=== PATIENT | male | born 1975 | race African-American/Black ===

== ENCOUNTER 2019-02-26 07:21 | Inpatient (IN) ==
[2019-02-26] MEDS ORDERED: APRESOLINE IV ONE (07:30)
[2019-02-26] MEDS ORDERED: LASIX IV ONE (07:35)
--- NOTE | 2019-02-26 07:46 | Diag Imaging Result Doc PS360 ---
EXAM: CHEST-1 VIEW 02/26/2019 HISTORY: sob TECHNIQUE: AP portable at 0738 COMMENT: There is cardiomegaly. There is subsegmental atelectasis in both lung bases. The pulmonary vascularity is prominent. Compared to 03/31/2018 the heart size appears larger as do the pulmonary vessels. IMPRESSION: Cardiomegaly and pulmonary vascular engorgement. Electronically signed by Saeid Weaver 02/26/2019 7:44 AM
--- NOTE | 2019-02-26 07:56 | EKG Report ---
Test Performed on : 02/26/2019 07:34:50 AM Test Reason : sob Blood Pressure : / mmHG Vent. Rate : 099 BPM Atrial Rate : 099 BPM P-R Int : 168 ms QRS Dur : 090 ms QT Int : 382 ms P-R-T Axes : 056 021 129 degrees QTc Int : 490 ms Normal sinus rhythm. Possible Left atrial enlargement ST & T wave abnormality, consider lateral ischemia Prolonged QT Abnormal ECG When compared with ECG of 31-MAR-2018 04:21, fusion complexes are no longer present Unconfirmed Result
[2019-02-26 08:45] LABS: BLOOD TYPE ARTERIAL; SAMPLE BLOOD
[2019-02-26 08:46] LABS: ALLEN TEST YES; BE -2.1 mmoll (-3.0-3.0); HCO3-(ACT) 23.2 mmoll (20.0-26.0); MODALITY ROOM AIR; O2(CT) 12.9 mL/dL (15.0-23.0); O2HB 93.9 % (95.0-99.0); PCO2(98.6) 35 mmHg (35-45); PO2(98.6) 82 mmHg (60-100); SAO2 98.2 % (95.0-100.0); THB 9.7 g/dL (11.5-17.4); pH(98.6) 7.41 (7.35-7.45)
--- NOTE | 2019-02-26 09:00 | PROVIDER DOCUMENTATION ---
HPI-Respiratory General - General Chief Complaint: Shortness of Breath Stated Complaint: SOB,BILA LEG,FOOT PAIN Time Seen by Provider: 02/26/19 07:27 Source: patient Allergies/Adverse Reactions: Patient Allergies Allergy/AdvReac Type Severity Reaction Status Date / Time No Known Allergies Allergy Verified 02/26/19 07:46 Home Medications: Home Medication List Medication Instructions Recorded Confirmed Last Taken Type Furosemide [Lasix] 20 mg PO BID 03/31/18 02/26/19 02/25/19 21:00 History Losartan Potassium 100 mg PO DAILY 03/31/18 02/26/19 02/25/19 21:00 History Clonidine HCl 1 tab PO TID 02/26/19 02/26/19 02/25/19 21:00 History - History of Present Illness-Resp Nature of Presenting Problem: 43 y/o Obese BM c/o moderate sob since last night and edema to his lower extremities that he notes is chronic and just worse in the past 3 months. Pt admits that he only takes some of his bp meds and only takes them once a day. Pt has not had any BP meds yet today he notes. Quality of Pain: reports: none Severity in ED: reports: mild Onset/Duration: reports: 24 hours ago Timing: reports: still present Exposure: reports: unknown cause Cough Quality/Degree: reports: mild Current Respiratory Medication Therapy: Initiated see nurses note Modifying Factors: improves with: exertion Associated Symptoms: reports: short of breath Similar Symptoms Previously?: No Recently seen or treated by another doctor?: No Review of Systems - Adult - REVIEW OF SYSTEMS - ADULT Constitutional: reports: see HPI Eyes: reports: see HPI Ears, Nose, Mouth & Throat: reports: see HPI Cardiovascular: reports: see HPI Respiratory: reports: see HPI, shortness of breath Gastrointestinal: reports: see HPI Genitourinary: reports: no symptoms reported, see HPI Musculoskeletal: reports: no symptoms reported, see HPI Integumentary: reports: no symptoms reported, see HPI Neurological: reports: no symptoms reported, see HPI Psychiatric: reports: no symptoms reported, see HPI Endocrine: reports: no symptoms reported, see HPI Hematologic/Lymphatic: reports: no symptoms reported, see HPI Allergic/Immunologic: reports: no symptoms reported, see HPI All Other Systems: Reviewed and Negative Past History - Adult - PAST MEDICAL HISTORY-ADULT Review of Records: reports: Nursing Assessment Review, Medications Reviewed, Social history reviewed & non-contributory. Major Childhood Illnesses: reports: denies history Cardiovascular: reports: HTN Respiratory: reports: denies history Gastrointestinal: reports: denies history Obstetrical/Gynecological: reports: denies history Genitourinary: reports: denies history Musculoskeletal: reports: denies history Neurological: reports: cancer/tumor (Brain) Psychiatric: reports: depression Endocrine/Immune: reports: denies history Other Conditions: reports: denies history - PRIOR SURGERIES/PROCEDURES Surgical/Procedure History: reports: none - PRIOR HOSPITALIZATIONS Prior Hospitalizations: reports: for other non-related - IMMUNIZATION STATUS Childhood Immunizations: See Nurse Assessment Flu Vaccine: See Nurse Assessment Physical Exam-General - PHYSICAL EXAM-ADULT Initial Vital Signs Reviewed: Yes - CONSTITUTIONAL General Appearance: appears well, alert, no apparent distress - EYES Eyes: PERRL/EOMI - HEAD, EARS, NOSE, MOUTH & THROAT HENMT: normocephalic/atraumatic, moist mucous membranes - NECK Neck: non-tender, full range of motion, supple, normal inspection - RESPIRATORY Respiratory: chest non-tender, lungs clear, normal breath sounds, no pleuratic chest pain, no respiratory distress, no accessory muscle use - CARDIOVASCULAR Cardiovascular: normal peripheral pulses, regular rate, rhythm, no edema, no gallop, no JVD, no murmur - GASTROINTESTINAL (ABDOMEN) Abdominal Exam: normal bowel sounds, non tender, soft - LYMPHATIC Lymphatic: no adenopathy - MUSCULOSKELETAL Back Exam: normal inspection, no CVA tenderness, no vertebral tenderness Extremity: normal range of motion, non-tender, normal gait, normal inspection, no pedal edema, no calf tenderness, normal capillary refill - SKIN Integumentary: normal color - NEUROLOGIC Neurologic: echo vascular tech II-XII nml as tested, grossly normal - PSYCHIATRIC Psych/Mental Status: normal mood/affect, normal thought content, normal thought process, oriented x 3 Progress - PLAN OF CARE/RESULTS Result Diagrams: 02/26/19 07:48 02/26/19 07:48 - CONSULTS/PCP/HOSPITALIST Notification #1 *Consult/PCP/Hospitalist*: [facility] for Hospitalist Dr Rebolledo Time Discussed: 10:23 Reason/Comments: Hospitalist wants to see pt before possibly starting lovenox. Consult Disposition: Will see in ED, Admit Departure - Departure Date of Disposition Decision: 02/26/19 Time of Disposition Decision: 10:23 DIAGNOSIS: CHF (congestive heart failure), Obesities, morbid, Renal insufficiency, Elevated d-dimer, Edema, Anemia, Nonadherence to medication Disposition: ADMITTED INPATIENT 09 Certified Medical Emergency: Emergent Condition: Fair - Critical Care Note This patient required my direct & personal management of CC.: No Attestation - Physician/ ANDRES Attestation Patient care was provided by Advanced Practice Provider:: No The physician spent face to face time with patient:: Yes Advanced Practice Provider documentation review:: Supervising physician onsite and consulted in the evaluation and care of this patient. The physician did have a face to face encounter with the patient.
[2019-02-26 09:28] LABS: BASO# 0.04 X1000 (0.0-0.2); BASO% 0.6 % (0.0-0.8); EOS% 5.7 % (0.0-10.0); HEMATOCRIT 29.1 % (42.0-52.0); HEMOGLOBIN 9.1 g/dL (14.0-18.0); IMM GRAN# 0.02 X1000 (0.0-0.04); IMM GRAN% 0.3 % (0.0-0.5); LYMPH# 2.06 X1000 (1.2-3.4); LYMPH% 29.5 % (20.5-51.1); MCH 26.3 PG (27-31); MCHC 31.3 g/dL (33-37); MCV 84.1 FL (81-99); MONO# 0.56 X1000 (0.11-0.59); MPV 11.6 FL (7.4-10.4); NEUT% 55.9 % (42.2-75.2); PLT 215 X1000 (130-400); RBC 3.46 XMIL (4.7-6.1); RDW 16.8 % (11.5-14.5); WBC 6.98 X1000 (4.8-10.8)
[2019-02-26 09:33] LABS: INR 1.28
[2019-02-26 09:34] LABS: PTT 32.9 Seconds (22.3-41.8)
[2019-02-26 09:36] LABS: D-DIMER 1.73 ug/mLFEU (0.0-0.52)
[2019-02-26 09:57] LABS: ALB/GLOB RATIO 0.8; ALBUMIN 3.2 g/dL (3.5-5.0); CALCIUM 7.8 mg/dL (8.8-10.2); CREATININE 3.1 mg/dL (0.7-1.2); POTASSIUM 4.6 mmol/L (3.5-5.1); TOTAL BILIRUBIN 0.17 mg/dL (0.20-1.00); TOTAL PROTEIN 7.3 g/dL (6.3-8.3)
[2019-02-26] MEDS ORDERED: CATAPRES PO ONE (10:50)
--- NOTE | 2019-02-26 10:54 | ED EKG INTERP ---
This chart was entered by Tete Marinelli Scribe, acting as scribe for Cristobal Adler MD. EKG Interpretation - EKG Time of EKG reading by physician:: 07:34 EKG Read and Signed by:: Cristobal Adler EKG Interpretation (*Must complete 3 of following elements*): Abnormal Rate: 99 Rhythm: nsr Crossnore: normal QRS: other (possible left atrial enlargement prolonged QT) VT Interval: normal Comments: st and t wave abnormality, consider lateral ischemia Attestation - Physician/ ANDRES Attestation Patient care was provided by Advanced Practice Provider:: No The physician spent face to face time with patient:: Yes Advanced Practice Provider documentation review:: Supervising physician onsite and consulted in the evaluation and care of this patient. The physician did have a face to face encounter with the patient. This chart was documented by the indicated scribe, (Tete Marinelli Scribe) and accurately reflects the services I performed and decisions made by me, Cristobal Adler MD, as attested by the provider's signature.
[2019-02-26] MEDS ORDERED: TYLENOL PO PRN (11:42)
[2019-02-26] MEDS ORDERED: ZOFRAN IV PRN (11:42)
[2019-02-26] MEDS ORDERED: NICODERM PATCH TD ONE (11:58)
[2019-02-26] MEDS ORDERED: LOVENOX 1 MG/KG SUBQ ONE (11:58)
[2019-02-26] MEDS: NORVASC PO SCH (12:18)
--- NOTE | 2019-02-26 14:35 | Diag Imaging Result Doc PS360 ---
LUNG SCAN / VQ - 02/26/2019 INDICATION: elevated d-dimer, CHF TECHNIQUE: 41.2 mCi of DTPA was used for inhalation. 6 mCi of MAA was used for injection. COMPARISON: Chest x-ray from earlier today FINDINGS: There is normal localization of the radiotracer's. There is no pulmonary perfusion defects. IMPRESSION: Negative for pulmonary embolism. Electronically signed by Narendra Mckinney 02/26/2019 2:32 PM
[2019-02-26] MEDS: APRESOLINE IV PRN (15:09)
[2019-02-26 15:15] LABS: CHOLESTEROL 157 mg/dL (0-200); HDL 45 mg/dL (35-55); LDL 75 mg/dL; TOTAL IRON 20 ug/dL (53-167); TRIGLYCERIDES 186 mg/dL (39-160); VLDL 37 mg/dL
--- NOTE | 2019-02-26 15:15 | ECHO REPORT ---
ORDER DATE: 02/26/2019 INTERPRETING PHYSICIAN: Reji Manuel MD ECHOCARDIOGRAPHIC MEASUREMENTS: 1. Interventricular septum 1.5 cm. 2. Left ventricular posterior wall 1.5 cm. 3. Diastolic diameter 5.2 cm. 4. Left atrium 3.9 cm. 5. Aorta 2.7 cm. SUMMARY OF THE 2-DIMENSIONAL IMAGIN. The aortic valve leaflets were trileaflet. 2. Pulmonic valve was normal. 3. There is mild pulmonary regurgitation. 4. Technically suboptimal study, poor acoustic window. 5. Mitral valve was normal. 6. Tricuspid valve was normal. 7. There is mild mitral regurgitation. 8. Mild tricuspid regurgitation. 9. Peak velocity across the tricuspid valve was 2 m/sec. 10. Peak velocity across the aortic valve less than 2 m/sec. 11. There is no aortic stenosis. 12. There is mild aortic regurgitation. 13. There is mild left atrial enlargement. 14. Normal left ventricular cavity size. 15. Concentric left ventricular hypertrophy. 16. Estimated ejection fraction of 65% to 70%. 17. There is no pericardial effusion. 18. Mitral annular calcification noted in addition. cc: Reji Manuel MD
[2019-02-26 17:39] LABS: URINE SOURCE VOIDED
[2019-02-26 17:44] LABS: BILIRUBIN URINE NEGATIVE (NEGATIVE); BLOOD URINE NEGATIVE (NEGATIVE); COLOR STRAW; GLUCOSE URINE NEGATIVE (NEGATIVE); KETONE URINE NEGATIVE (NEGATIVE); LEUKOCYTES URINE NEGATIVE (NEGATIVE); NITRITE URINE NEGATIVE (NEGATIVE); PH URINE 6.5; PROTEIN URINE 200 mg/dL (NEGATIVE); SP GRAVITY URINE 1.007; TURBIDITY URINE CLEAR (CLEAR); UR EPITHELIAL CELLS <10 /HPF (<10); URINE BACTERIA NEGATIVE /HPF; URINE RBC <10 /HPF (<10); URINE WBC <10 /HPF (<10); UROBILINOGEN URINE NORMAL (NORMAL)
[2019-02-26 17:52] LABS: UR CREAT RANDOM 55.9 mg/dL (14-26)
[2019-02-26] MEDS: LOVENOX SUBQ ONE ×4 (19:44→19:58)
--- NOTE | 2019-02-26 20:28 | HISTORY AND PHYSICAL ---
SENIOR TAX ACCOUNTANT: Dr. Henley. CHIEF COMPLAINT: Pain and edema to the lower extremities HISTORY OF PRESENT ILLNESS: This is a 43-year-old male who presents today to the ER with pain in the lower extremities. The patient has a past medical history of congestive heart failure and venous stasis. The patient has a large amount of edema to bilateral lower extremities that is hardened and chronic. Chest x-ray was done in the ER, which showed pulmonary vascular engorgement and cardiomegaly. The patient was given Lasix in the ER and patient is diuresing. Blood pressure in the ER was noted to be extremely high, initially 201/130. The patient denies any fever or chills. States he does have an occasional cough but does not produce much mucus with his cough. Patient states that he is compliant with his medications. However, he does occasionally skip a dose of his clonidine. Patient denies any chest pain. No other a PAST MEDICAL HISTORY: Includes CHF, anemia of chronic disease, neuropathy, hypertension, morbid obesity, nicotine dependence, chronic kidney disease stage 3 to 4, depression, hyperlipidemia, diastolic dysfunction, history of brain cancer as a child. SURGICAL HISTORY: Includes craniotomy with a tumor resection at age of 3, he has also had a hernia repair. SOCIAL HISTORY: The patient smokes about a half a pack a day. Says he drinks occasionally and does not drink to excess. Denies any drug abuse. He is , has 2 children. FAMILY HISTORY: Both parents are alive. Father recently had his legs amputated due to diabetes. Mother has hypertension and obesity. MEDICATIONS: Clonidine 0.1 mg p.o. t.i.d., furosemide 3 mg p.o. b.i.d., losartan potassium 100 mg p.o. daily. ALLERGIES: No known drug allergies. LABS AND DIAGNOSTICS: White blood cell count 6.98, hemoglobin 9.1, hematocrit 29.1, platelet count 215,000. PT is 17, INR is 1.28, PTT is 32.9. D-dimer 1.73. Blood gases, pH 7.41, pCO2 35, PO2 82, bicarb 23.2, O2 saturation is 98.2 on room air. Sodium 138, potassium 4.6, chloride 107, carbon dioxide 21, anion gap 10, BUN 24, creatinine 3.1, estimated GFR is 27, glucose is 104, calcium 7.8, iron 20, bilirubin 0.17, AST 13, ALT 10, alkaline phosphatase 125. Creatine kinase 166, troponin less than 0.01. ProBNP 2356, triglycerides 186, LDL 75, VLDL 37, HDL 45, TSH 3.67. Urinalysis is negative except is positive for protein. Urine sodium is 108, urine creatinine is 55.9, urea nitrogen is 224. Chest x-ray done in the ER on 02/26 shows cardiomegaly and pulmonary vascular engorgement. V/Q lung scan was done and it was negative for pulmonary embolus. REVIEW OF SYSTEMS: A 14 point review of system was complete and is all negative except for what is stated above in HPI. PHYSICAL EXAM: VITAL SIGNS: Heart rate 102, respiratory rate 24, blood pressure 199/117, O2 saturation 97% on room air, temperature 98 degrees. GENERAL: This is a obese male who is 43 years out who is lying in the ER stretcher in no acute distress. NEUROLOGIC: The patient is awake, alert, oriented, follows all commands with no focal deficits. Pupils equal, round, reactive to light. HEENT: Head is atraumatic and normocephalic. NECK: Supple but it is really difficult to assess due to the patient's anatomy. CV: Regular, rate and rhythm, no murmurs, gallops, or rubs identified. CHEST: Lung sounds are clear and equal to expansion, symmetrical. Respiratory effort is nonlabored and no accessory muscle uses. Abdomen: Large but not distended, is soft to touch and nontender with bowel sounds present in all 4 quadrants. Musculoskeletal: The patient is able to move all extremities. Lower extremities are noted to have a large amount of edema that is hardened and nonpitting. Extremities: As mentioned above edema to bilateral lower extremities that is hardened to touch. There is no clubbing or cyanosis noted. Unable to palpate pulses but feet are warm to touch. Skin: Warm, dry, and intact with no rashes or bruises noted. There is large edematous areas to the bilateral lower extremities but no open wounds. ASSESSMENT AND PLAN: 1. Hypertension. Resumed Cozaar daily. Started patient on amlodipine 10 mg p.o. daily, p.r.n. hydralazine ordered for systolic greater than 160 or diastolic greater than 100. 2. Congestive heart failure exacerbation. Patient is started on Lasix in the emergency room. Will continue Lasix upon the floor. Echocardiogram ordered. 3. Elevated D-dimer. V/Q lung scan negative. Patient given Lovenox in the emergency room. 4. Bilateral venous stasis. Patient started on Lasix in the emergency room. Will continue blood thinners as needed. 5. Neuropathic pain. Patient started on Neurontin 200 mg p.o. b.i.d. Dictated by KENAN Estrella for Jaret Rebolledo MD cc: Jaret Rebolledo MD Agree with above. the following is my own face to face assessment. Patient with dyspnea on exertion. marked bilateral venous stasis changes in the legs on exam without any sign of infection. elevated BNP. suspect CHF. will check echo, diurese, and monitor. MTDD
[2019-02-26] MEDS: NEURONTIN PO SCH (23:16)
[2019-02-27] MEDS: APRESOLINE IV PRN ×2 (00:29→00:52)
[2019-02-27] MEDS ORDERED: LABETALOL IV ONE (04:08)
[2019-02-27] MEDS ORDERED: APRESOLINE IV PRN (04:11)
[2019-02-27 07:48] LABS: BASO# 0.03 X1000 (0.0-0.2); BASO% 0.5 % (0.0-0.8); EOS# 0.22 X1000 (0.0-0.7); EOS% 3.4 % (0.0-10.0); LYMPH% 39.9 % (20.5-51.1); MCH 25.8 PG (27-31); MCV 83.1 FL (81-99); MONO# 0.56 X1000 (0.11-0.59); MONO% 8.6 % (1.7-9.3); MPV 10.9 FL (7.4-10.4); NEUT% 47.6 % (42.2-75.2); PLT 279 X1000 (130-400); RBC 3.49 XMIL (4.7-6.1); RDW 16.6 % (11.5-14.5); WBC 6.51 X1000 (4.8-10.8)
[2019-02-27 08:00] LABS: ALB/GLOB RATIO 0.8; ALBUMIN 3.3 g/dL (3.5-5.0); CALCIUM 8.2 mg/dL (8.8-10.2); CREATININE 3.2 mg/dL (0.7-1.2); POTASSIUM 4.3 mmol/L (3.5-5.1); TOTAL BILIRUBIN 0.43 mg/dL (0.20-1.00); TOTAL PROTEIN 7.6 g/dL (6.3-8.3)
--- NOTE | 2019-02-27 08:31 | Diag Imaging Result Doc PS360 ---
EXAM: CHEST-PORTABLE INDICATION: CHF TECHNIQUE: One view COMPARISON: 02/26/2019 FINDINGS: There is stable pulmonary venous congestion. No new consolidations are identified. The cardiac silhouette appears smaller, likely due to differences in magnification. IMPRESSION: Stable pulmonary venous congestion but the cardiac silhouette appears smaller than the previous study. Electronically signed by Melvin Flores 02/27/2019 8:28 AM
[2019-02-27] MEDS ORDERED: COZAAR PO SCH (09:00)
[2019-02-27] MEDS: NEURONTIN PO SCH ×2 (09:37→22:22)
[2019-02-27] MEDS: LASIX IV SCH ×2 (09:38→22:22)
[2019-02-27] MEDS: NORVASC PO SCH (09:38)
[2019-02-27] MEDS: COREG PO SCH ×2 (09:47→22:22)
[2019-02-27] MEDS: ISMO PO SCH ×2 (09:47→22:21)
--- NOTE | 2019-02-27 16:20 | PROGRESS NOTE ---
DATE: 02/27/2019 INTERVAL HISTORY: Patient still with some dyspnea on exertion, but significantly improved with diuresis. No new complaints. No other acute events overnight. REVIEW OF SYSTEMS: Twelve point review of systems negative except as per interval history. LABS: WBCs 6.5, hemoglobin 9, hematocrit 29.0, platelets 279. Sodium 139, potassium 4.3, bicarb 22, BUN 23, creatinine 3.2, glucose 99. Troponins negative x3. Urinalysis essentially unremarkable. IMAGING: Repeat chest x-ray with largely stable pulmonary venous congestion. V/Q scan negative for clot. Echocardiogram with normal EF. Some LVH. No obvious significant valvular abnormalities. Was technically difficult because of the patient's size. Extremity ultrasound preliminary report negative for clot. VITALS: T-max 98.7, pulse 83, respirations 16, blood pressure 157/81, O2 saturation 99% on room air PHYSICAL EXAM: General: No acute distress. Vitals: As above. HEENT: Normocephalic, atraumatic. Moist mucous membranes. No cervical adenopathy. Cardiovascular: Regular rate and rhythm. No murmurs, rubs or gallops noted. Pulmonary: Minimal bibasilar crackles, improved from previous. Otherwise, clear to auscultation within limits of body habitus. Abdomen: Soft, nontender, nondistended. Bowel sounds positive. Obese. Extremities: Peripheral pulses decreased but intact. Massive bilateral lower extremity chronic venous stasis changes with significant thickening of the skin. Neurologic: Cranial nerves grossly intact. No focal deficits identified. Psychiatric: Awake, alert and oriented x3. Normal mood and affect. Skin: Lower extremity edema and skin thickening as above. Otherwise, no new rashes or lesions noted. ASSESSMENT: 1. Hypertension. Placed on Norvasc, Coreg, Lasix. Control suboptimal, so adding some isosorbide. Hydralazine available p.r.n. Monitor. 2. Likely acute on chronic diastolic congestive heart failure. Patient with BNP almost double what it has been in the past. Some pulmonary congestion on x-ray. Dyspnea on exertion. X- rays similar but clinically improving with Lasix. Will continue IV Lasix and monitor. Echocardiogram with normal EF as above. 3. Elevated D-dimer. V/Q scan and lower extremity Dopplers negative. 4. Chronic kidney disease. Patient with elevated creatinine. Last creatinine in our system approximately a year ago was 2.3 then. Significantly higher now at 3.2, but pretty stable. May be acute kidney injury, but suspect worsening of his underlying chronic kidney disease. 5. Chronic venous stasis bilateral legs noted. No active infection noted. 6. Likely neuropathic pain. Patient came in with complaints of burning and pins and needles sensations in bilateral feet. Patient started on Neurontin with some improvement. Monitor. 7. Morbid obesity. Patient counseled on diet and medications. DISPOSITION: At least 1 more day of diuresis. If condition improves, may be able to go home tomorrow.
[2019-02-27] MEDS: HEPARIN SUBQ SCH ×2 (16:40→22:22)
[2019-02-28] MEDS: HEPARIN SUBQ SCH ×3 (06:00→20:56)
[2019-02-28 08:30] LABS: BASO# 0.02 X1000 (0.0-0.2); BASO% 0.3 % (0.0-0.8); EOS# 0.25 X1000 (0.0-0.7); EOS% 4.1 % (0.0-10.0); HEMATOCRIT 26.8 % (42.0-52.0); HEMOGLOBIN 8.2 g/dL (14.0-18.0); LYMPH# 2.28 X1000 (1.2-3.4); LYMPH% 37.7 % (20.5-51.1); MCH 25.4 PG (27-31); MCHC 30.6 g/dL (33-37); MONO# 0.51 X1000 (0.11-0.59); MONO% 8.4 % (1.7-9.3); MPV 10.6 FL (7.4-10.4); NEUT# 2.98 X1000 (1.4-6.5); NEUT% 49.5 % (42.2-75.2); PLT 278 X1000 (130-400); RBC 3.23 XMIL (4.7-6.1); RDW 16.6 % (11.5-14.5); WBC 6.04 X1000 (4.8-10.8)
[2019-02-28] MEDS: COREG PO SCH ×2 (08:45→20:56)
[2019-02-28] MEDS: LASIX IV SCH (08:45)
[2019-02-28] MEDS: NEURONTIN PO SCH ×2 (08:45→20:56)
[2019-02-28] MEDS: NORVASC PO SCH (08:45)
[2019-02-28 08:48] LABS: CREATININE 3.5 mg/dL (0.7-1.2); POTASSIUM 3.9 mmol/L (3.5-5.1)
[2019-02-28] MEDS: ISMO PO SCH ×2 (08:52→20:56)
--- NOTE | 2019-02-28 10:48 | Extremity Venous Study ---
PROCEDURE NAME: Venous U/S Bilateral Legs - 02/26/2019 PROCEDURE: Bilateral lower extremity venous duplex, and color flow imaging study using the Snapflow vivid E9 ultrasound System with a 9 L-D transducer. REFERRING PHYSICIAN: Vitor. IT HELP DESK TECHNICIAN: Robin Kelley RVT INDICATIONS: Shortness of breath with bilateral lower extremity edema. She is also morbidly obese. FINDINGS: This is a limited study secondary to the patient's morbid obesity. The right common femoral vein and its branches of the deep and superficial femoral veins did not appear to have a thrombus within them. The right popliteal vein had flow through it. The superficial veins of the right lower extremity had no evidence of thrombus. The left common femoral vein and its branches of deep and superficial femoral veins when imaged had no evidence of thrombus. Left popliteal vein had flow through it without evidence of thrombus. The superficial veins of the left lower extremity were compressible throughout their length. INTERPRETATION: This is a limited study secondary to the patient's morbid obesity and swelling of her lower extremities, but there was no evidence of acute deep or superficial venous thrombosis noted. cc: Kat Marinelli MD
--- NOTE | 2019-02-28 13:33 | PROGRESS NOTE ---
DATE: 02/28/2019 INTERVAL HISTORY: The patient reports significant improvement in his dyspnea on exertion with diuresis. No new complaints. No other acute events overnight. REVIEW OF SYSTEMS: A 12 point review of systems as per Interval History. LABORATORIES: WBC 6.0, hemoglobin 8.2, hematocrit 26.8, platelets 278,000. Sodium 140, potassium 3.9, bicarbonate 24, BUN 24, creatinine 3.5, glucose 122. VITALS: Temperature maximum 99.3 degrees, pulse 86, respirations 18, blood pressure 167/90, O2 saturation 100%. PHYSICAL EXAMINATION: General: No acute distress. Vitals: As above. HEENT: Normocephalic, atraumatic. Slightly dry mucous membranes. Neck: No cervical adenopathy. Cardiovascular: Regular rate and rhythm. No murmurs, rubs, or gallops noted. Pulmonary: Essentially clear to auscultation bilaterally within the limits of body habitus. Abdomen: Soft, nontender, nondistended. Obese. Bowel sounds positive. Extremities: Peripheral pulses remain decreased, but intact. Massive bilateral lower extremity chronic venous stasis changes with significant skin thickening, stable. Neurologic: Cranial nerves grossly intact. No focal deficits identified. Psychiatric: Awake, alert, and oriented x3. Normal mood and affect. Skin: Skin thickening on legs as above. Otherwise no new rashes or lesions. ASSESSMENT AND PLAN: 1. Likely acute on chronic diastolic congestive heart failure. The patient with BNP on admission almost double what it has been in the past. Some pulmonary congestion on x-ray. Dyspnea on exertion. Echocardiogram with normal EF, suspect diastolic failure. Symptoms markedly improved with Lasix. Holding Lasix today because of increasing creatinine. Monitor, and if creatinine improves, will likely discharge home tomorrow on a lower dose of Lasix. 2. Possible acute kidney injury on chronic kidney disease stage 4. The patient with creatinine elevated above baseline. Likely over-diuresed. We will hold diuresis for today and monitor. Baseline likely approximately 3 to 3.1. 3. Hypertension. The patient on Coreg, Norvasc, and isosorbide. Control remains suboptimal. We will place clonidine patch. 4. Chronic venous stasis of bilateral legs. No signs of active infection. Ultrasound without evidence for DVT. 5. Likely neuropathic pain. Improved with gabapentin. 6. Morbid obesity. Patient counseled on diet and exercise.
[2019-03-01] MEDS: HEPARIN SUBQ SCH (05:43)
--- NOTE | 2019-03-01 07:39 | Diag Imaging Result Doc PS360 ---
EXAM: CHEST-PORTABLE INDICATION: dyspnea TECHNIQUE: One view COMPARISON: 02/27/2019 FINDINGS: Inspiration is suboptimal. There is suggestion of mild pulmonary venous congestion that is stable to marginally improved. No new consolidation is identified. Cardiac silhouette is stable. IMPRESSION: Stable to marginal improvement of mild pulmonary venous congestion. Electronically signed by Melvin Flores 03/01/2019 7:37 AM
[2019-03-01] MEDS: ISMO PO SCH (09:38)
[2019-03-01] MEDS: COREG PO SCH (09:39)
[2019-03-01] MEDS: NEURONTIN PO SCH (09:39)
[2019-03-01] MEDS: NORVASC PO SCH (09:39)
[2019-03-01 15:46] LABS: CALCIUM 8.6 mg/dL (8.8-10.2); CREATININE 3.6 mg/dL (0.7-1.2); POTASSIUM 3.9 mmol/L (3.5-5.1)
[2019-03-01 16:56] VITALS: BP 163/98
--- NOTE | 2019-03-06 05:23 | DISCHARGE SUMMARY ---
ADMISSION DATE: 02/26/2019 DISCHARGE DATE: 03/01/2019 DISCHARGE DIAGNOSES: 1. Acute on chronic diastolic congestive heart failure. 2. Chronic kidney disease stage 4. 3. Hypertension. 4. Chronic venous stasis of bilateral legs. 5. Neuropathic pain. 6. Morbid obesity. 7. Medication noncompliance. HOSPITAL COURSE: The patient is a 43-year-old male with history of hypertension, obesity, diabetes, chronic venous stasis. He presented with complaints of worsening dyspnea on exertion with progressively decreasing exercise tolerance. He reported an increasing nonproductive cough. The patient also reported that while he tried to be compliant with his medications, due to his work schedule, he frequently took his medications only once or at best twice a day, even if they were prescribed more often than that. The patient also complained of burning [id number] sensation in bilateral legs. On initial evaluation, the patient was found to have cardiomegaly and pulmonary vascular congestion on his chest x-ray. This was suggestive of congestive heart failure. Patient's BNP was also significantly elevated at 2356. This was more than double his previous highest value, which was 1157. Troponin was negative x3. He was treated with aggressive diuresis for presumed congestive heart failure. Echo was obtained which was somewhat technically difficult, but showed essentially normal EF. No major valvular abnormalities. Presumed that his heart failure was diastolic. His symptoms did improve rapidly with diuresis. His creatinine did bump slightly, diuretics were then held and creatinine was subsequently stable. His symptoms remained improved. He was started on gabapentin for his neuropathic pain. We attempted to take him off of his clonidine, as he was frequently missing doses and having rebound hypertension. However, his blood pressure was quite difficult to control and we eventually ended up putting him on a clonidine patch to try to make it easier for him to be compliant. His D-dimer was mildly elevated on admission at 1.73, but lower extremity Doppler's and lung V/Q scan were both negative for clot. On the day of discharge, patient was in stable condition. His dyspnea was resolved. His lower extremity edema and chronic venous stasis changes were stable. DISCHARGE VITAL SIGNS: Temperature 98.0 degrees, pulse 95, respirations 22, blood pressure 163/98, O2 saturation 96% on room air. DISCHARGE MEDICATIONS: Losartan 100 mg p.o. daily, Coreg 12.5 mg p.o. b.i.d., isosorbide mononitrate 20 mg p.o. b.i.d., Lasix 60 mg p.o. daily, Neurontin 200 mg p.o. b.i.d., Norvasc 10 mg p.o. daily. DISCHARGE DIET: Cardiac. FOLLOW-UP AND PLAN: Patient discharging home. Follow up with PCP for lab recheck and blood pressure check. TIME SPENT: Greater than 30 minutes spent in arranging discharge and counseling patient.
== END 2019-03-01 18:42 | disposition home or self-care (01) | DRG 291 ==
LOC: ED 07:21 → 3N 07:22
PROVIDERS: ATTEND Internal Medicine
CPT/HCPCS: 71010; 71045; 78582; 80048; 80053; 80061; 81001; 82550; 82570; 82805; 83540; 83735; 83880; 84300; 84443; 84484; 84540; 85025; 85379; 85610; 85730; 93005; 93306; 93970; 96374; 96375; 99285; A9270; A9539; A9540; C8929; J0360; J1644; J1650; J1940; Q9957